=== PATIENT | male | born 1980 | race African-American/Black ===

== ENCOUNTER 2017-06-18 10:21 | Emergency (ER) | payer OTHER ==
[~2017-06-18] VITALS: Ht 188 cm; Wt 102.5 kg
[2017-06-18 12:14] VITALS: BP 150/102
[2017-06-18] MEDS ORDERED: cefTRIAXone SOD 1,000 MG VL IM ONE (13:00)
== END 2017-06-18 14:54 | disposition home or self-care (01) ==
LOC: ER 10:21
DX: J03.90 Acute tonsillitis, unspecified (principal)
CPT/HCPCS: 70490; 87804; 96372; 99285; J0696